=== PATIENT | male | born 1955 | race Caucasian/White ===

== ENCOUNTER 2018-08-19 17:32 | Emergency (ER) | payer OTHER ==
[2018-08-19 19:05] VITALS: BP 136/84
--- NOTE | 2018-08-19 19:35 | UC ---
General HPI - HPI Summary HPI Summary: pain, red and swelling around nail on R middle finger since yesterday. - History of Current Complaint Chief Complaint: UCSkin Stated Complaint: RIGHT MIDDLE FINGER POSS. INFECTION Time Seen by Provider: 08/19/18 19:19 Hx Obtained From: Patient Onset/Duration: Gradual Onset Timing: Constant Pain Intensity: 6 Associated Signs & Symptoms: Negative: Fever - Allergy/Home Medications Allergies/Adverse Reactions: Allergies Allergy/AdvReac Type Severity Reaction Status Date / Time Penicillins Allergy Coughing Verified 08/19/18 18:58 Home Medications: Home Medications Aspirin TAB* [Aspirin 325 MG TAB*] 325 mg PO BID 08/19/18 [History Confirmed ] C,E,Zinc,Copper 11/Izdey3b/Lut [Ocuvite Adult 50 Plus Softgel] 1 each PO DAILY 08/19/18 [History Confirmed 08/19/18] Furosemide TAB* [Lasix TAB*] 80 mg PO BID 08/19/18 [History Confirmed 08/19/18] Modafinil TAB* [Provigil TAB*] 100 mg PO DAILY 08/19/18 [History Confirmed 08/19] Multivit-Min/Folic Acid/Vit K1 [Multi For Her 50 Plus Softgel] 1 each PO DAILY 08/19/18 [History Confirmed 08/19/18] Potassium Chlor TAB* [Klor Con ER TAB*] 20 meq PO DAILY 08/19/18 [History Confirmed 08/19/18] amLODIPine TAB* [Norvasc 5 mg TAB*] 5 mg PO DAILY 08/19/18 [History Confirmed ] amLODIPine TAB* [Norvasc 5 mg TAB*] 10 mg PO DAILY 08/19/18 [History Confirmed 08/19/18] metFORMIN* [Glucophage 1000 MG TAB *] 1,000 mg PO BEDTIME 08/19/18 [History Confirmed 08/19/18] PMH/Surg Hx/FS Hx/Imm Hx - Additional Past Medical History Additional PMH: lymphedema, MRSA Endocrine History: Diabetes - pre Cardiovascular History: Hypertension - Surgical History Surgical History: Yes Surgery Procedure, Year, and Place: tonsillectomy 1960. wisdom teeth 1985 - Family History Known Family History: Positive: Unknown - Social History Lives: Alone Alcohol Use: Rare Substance Use Type: None Smoking Status (MU): Never Smoked Tobacco - Immunization History Vaccination Up to Date: Yes Review of Systems Constitutional: Negative Skin: Other - red, swelling around R middle nail Eyes: Negative ENT: Negative Respiratory: Negative Cardiovascular: Negative Gastrointestinal: Negative Genitourinary: Negative Motor: Negative Neurovascular: Negative Musculoskeletal: Negative Neurological: Negative Psychological: Negative Is Patient Immunocompromised?: No All Other Systems Reviewed And Are Negative: Yes Physical Exam Triage Information Reviewed: Yes Appearance: Well-Appearing Vital Signs: Initial Vital Signs Temp 97.5 F 08/19/18 18:55 Pulse 74 08/19/18 18:55 Resp 20 08/19/18 18:55 BP 136/84 08/19/18 18:55 Pulse Ox 100 08/19/18 18:55 Vital Signs Reviewed: Yes Eyes: Positive: Conjunctiva Clear ENT: Positive: Normal ENT inspection Neck: Positive: Supple, Nontender Respiratory: Positive: Lungs clear, Normal breath sounds Cardiovascular: Positive: RRR, No Murmur Abdomen Description: Positive: Nontender, No Organomegaly, Soft Bowel Sounds: Positive: Present Musculoskeletal: Positive: ROM Intact, Edema @ - BLE's c/w lymphedema. Neurological: Positive: Alert Psychological: Positive: Age Appropriate Behavior Skin Exam: Normal, Other - Red with swelling around nail of R middle finger. Course/Dx - Course Course Of Treatment: Blunt edge of Q tip used to push cuticle back. Site drained and cultured from R middle finger nail. soaked in warm soap/water. tolerated well. Mild eryhtema around site thus will tx po antibiotic with MRSA coverage. - Differential Dx - Multi-Symptom Provider Diagnoses: Paronychia R middle finger. Discharge - Sign-Out/Discharge Documenting (check all that apply): Patient Departure All imaging exams completed and their final reports reviewed: No Studies - Discharge Plan Condition: Stable Disposition: HOME Prescriptions: DOXYcycline CAP(*) [DOXYcycline 100MG CAP(*)] 100 mg PO BID 7 Days #14 cap Patient Education Materials: Paronychia (ED) Referrals: Elvi Fuentes MD [Primary Care Provider] - 3 Days - Billing Disposition and Condition Condition: STABLE Disposition: Home
--- NOTE | 2018-08-20 15:15 | UC ---
- Progress Note Progress Note: Right middle finger wound culture comes back today positive for MRSA and also staph aureus. Patient is on doxycycline so no further there are changes care needed at this time. Discharge - Sign-Out/Discharge Documenting (check all that apply): Patient Departure All imaging exams completed and their final reports reviewed: No Studies - Discharge Plan Condition: Stable Disposition: HOME Prescriptions: DOXYcycline CAP(*) [DOXYcycline 100MG CAP(*)] 100 mg PO BID 7 Days #14 cap Patient Education Materials: Magali (ED) Referrals: Elvi Fuentes MD [Primary Care Provider] - 3 Days - Billing Disposition and Condition Condition: STABLE Disposition: Home
== END 2018-08-19 19:44 | disposition home or self-care (01) ==
LOC: UCCORT 17:32
DX: L03.011 Cellulitis of right finger (principal); Z88.0 Allergy status to penicillin; Z79.82 Long term (current) use of aspirin; I10 Essential (primary) hypertension; Z79.899 Other long term (current) drug therapy
CPT/HCPCS: 87070; 87077; 87186; 87205; 87640; 87641; 99212; G0463